=== PATIENT | male | born 1990 | race Caucasian/White ===

== ENCOUNTER 2018-01-20 06:13 | Inpatient (IN) | payer MEDICAID ==
[2018-01-20] MEDS ORDERED: CEFAZOLIN/Water 2 GM/20 ML SYRINGE ONE (06:59)
[2018-01-20] MEDS ORDERED: Lidocaine 0.5%/Epinephrine 1:200,000 50 ml Vial ONE ×2 (07:42→11:33)
[2018-01-20] MEDS ORDERED: Thrombin 5000 UNITS/5 ML VIAL ONE (07:42)
[2018-01-20] MEDS ORDERED: Bacitracin Zinc Ointment 30 gm TUBE ONE (07:45)
[2018-01-20 08:35] LABS: Hemoglobin 16.9 g/dL (14.0-18.0); Mean Corpuscular HGB CONC 35.5 g/dL (32.0-36.0); Mean Corpuscular Hemoglobin 30.4 pg (27.0-31.0); Mean Corpuscular Volume 85.6 fL (78.0-98.0); Mean Platelet Volume 6.3 fL (7.4-10.4); Platelet Count 232 thou/uL (130-400); RBC Distribution Width 11.9 % (11.5-14.5); Red Blood Cell (RBC) Count 5.58 mill/uL (4.70-6.10); White Blood Cell (WBC) Count 10.7 thou/uL (4.8-10.8)
[2018-01-20] MEDS ORDERED: Midazolam HCl 5 mg/5 ml Vial ONE (08:39)
[2018-01-20] MEDS ORDERED: Midazolam HCl 2 mg/2 ml Vial ONE (08:39)
[2018-01-20] MEDS ORDERED: Fentanyl 250 MCG/5 ML VIAL ONE (08:39)
[2018-01-20] MEDS ORDERED: Rocuronium Bromide 50 MG/5 ML VIAL ONE (08:40)
[2018-01-20 08:57] LABS: Anion Gap 12 mmol/L (10-20); BUN (Urea Nitrogen) 17 mg/dL (8.9-20.6); Calc. Creatinine Clearance 116 mL/min (70-130); Calcium 10.1 mg/dL (7.8-10.44); Carbon Dioxide 33 mmol/L (22-29); Chloride 99 mmol/L (98-107); Estimated GFR-MDRD Greater than 90; Glucose 85 mg/dL (70-105); Potassium 3.8 mmol/L (3.5-5.1); Sodium 140 mmol/L (136-145)
[2018-01-20] MEDS ORDERED: Lidocaine 2% 10 ML INJ ONE (09:09)
[2018-01-20] MEDS ORDERED: Dexmedetomidine 200 MCG/2 ML VIAL ONE (09:23)
[2018-01-20] MEDS ORDERED: SUGAMMADEX SODIUM 500 MG/5 ML VIAL ONE (11:52)
[2018-01-20] MEDS ORDERED: diphenhydrAMINE 50 MG/ML VIAL IVP PRN (11:58)
[2018-01-20] MEDS ORDERED: Mag-Al 1200 mg/1200 mg/30 ML UDCUP PO PRN (11:58)
[2018-01-20] MEDS ORDERED: Labetalol HCl 100 MG/20 ML VIAL SLOW IVP PRN (11:58)
[2018-01-20] MEDS ORDERED: hydrALAZINE 20 MG/ML VIAL SLOW IVP PRN (11:58)
[2018-01-20] MEDS ORDERED: Fentanyl 100 MCG/2 ML VIAL ONE (12:41)
--- NOTE | 2018-01-20 12:55 | OP ---
DATE OF PROCEDURE: 01/20/2018 SURGEON: Herbie Lowry M.D. HUMANITIES AND LANGUAGES PROFESSOR: Avni Null PA-C INDICATION: Obtain diagnosis and prevent neurologic decline. 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 ANESTHESIA: General. PROCEDURE PERFORMED: Suboccipital craniectomy with resection of tumor. TECHNIQUE: The patient was brought into the operating room and placed under general anesthesia. He was placed in a 3-point Pavon genet and carefully flipped from a supine or prone position on the operating room table. A midline linear incision was planned from the inion down to the mid portion o f the cervical spine. After prepping and draping and after infiltrating this area with Marcaine with epinephrine. The incision was created. Midline dissection was performed to expose from the inion d own to the lower portion of the occipital bone down near the posterior arch of the foramen magnum. A fter exposing the occiput, rn [facility] holes were placed in the left and right occipital bone just on each side of the midline raphae. A craniectomy was then performed using rongeurs and Kerrisons. The bone work was extended superiorly up to the inion which due to a very large protuberant inion was pa rtially shaved down as well. A large cruciate incision was placed in the cerebellar hemisphere on th e right side and an incision was extended to midline until the medial aspect of the left cerebellar h emisphere was identified. A small corticotomy was performed within the cerebellar parenchyma. There was immediate egress of a yellow-tinged fluid. This was completely removed and decompressed, some o f which was sent off for pathologic analysis. There was a fairly distinct wall present. This was no t removed in total. It did not contrast enhance. There was a long midline. What appeared to be a n odular appearing lesion consistent with a contrast enhancing portion of the lesion on MRI scan. This was sent off for pathologic review. Hemostasis was maintained. The dural leaflets were then reappr oximated and sewn primarily with suture. The wound was again irrigated. Hemostasis was maintained t hroughout. The posterior cervical incision was then closed in anatomic layers and a pressure dressin g was applied. There were no known procedural complications.
[2018-01-20] MEDS ORDERED: Glycopyrrolate 0.2 MG/ML 5 ML SYRINGE ONE (13:14)
[2018-01-20] MEDS ORDERED: Mannitol 12.5 GM/50 ML ONE (13:14)
[2018-01-20] MEDS ORDERED: Labetalol 100 MG/20 ML MDV ONE (13:14)
[2018-01-20] MEDS ORDERED: Ondansetron HCl/PF 4 MG/2 ML Vial ONE (13:14)
[2018-01-20] MEDS ORDERED: Lidocaine 1% PF 5 ML VIAL ONE (13:14)
[2018-01-20] MEDS: Sodium Chloride 0.9% 1,000 ML IV SCH (14:04)
[2018-01-20] MEDS: CEFAZOLIN/Water 2 GM/20 ML SYRINGE SLOW IVP SCH ×2 (14:04→19:24)
[2018-01-20 14:25] VITALS: BMI 23.6
[2018-01-20] MEDS: Ondansetron HCl/PF 4 MG/2 ML Vial IVP PRN (19:31)
[2018-01-20] MEDS: Famotidine/PF 20 mg/2ml Vial SLOW IVP SCH (21:01)
[2018-01-21] MEDS: Sodium Chloride 0.9% 1,000 ML IV SCH ×2 (00:08→13:15)
[2018-01-21 05:09] LABS: #Lymphocytes 2.7 thou/uL (1.20-3.40); #Monocytes 1.3 thou/uL (0.11-0.59); #Neutrophils 10.4 thou/uL (1.40-6.50); %Basophils 0.2 % (0.0-1.0); %Eosinophils 0.1 % (0.0-10.0); %Lymphocytes 18.3 % (21.0-51.0); %Monocytes 9.1 % (0.0-10.0); %Neutrophils 72.3 % (42.0-75.0); Hemoglobin 14.2 g/dL (14.0-18.0); Mean Corpuscular HGB CONC 35.6 g/dL (32.0-36.0); Mean Corpuscular Hemoglobin 30.4 pg (27.0-31.0); Mean Corpuscular Volume 85.4 fL (78.0-98.0); Mean Platelet Volume 6.5 fL (7.4-10.4); Platelet Count 195 thou/uL (130-400); RBC Distribution Width 11.8 % (11.5-14.5); Red Blood Cell (RBC) Count 4.67 mill/uL (4.70-6.10); White Blood Cell (WBC) Count 14.4 thou/uL (4.8-10.8)
[2018-01-21 05:18] LABS: Anion Gap 10 mmol/L (10-20); BUN (Urea Nitrogen) 10 mg/dL (8.9-20.6); Calc. Creatinine Clearance 136 mL/min (70-130); Calcium 8.9 mg/dL (7.8-10.44); Carbon Dioxide 29 mmol/L (22-29); Chloride 100 mmol/L (98-107); Estimated GFR-MDRD Greater than 90; Glucose 105 mg/dL (70-105); Potassium 3.8 mmol/L (3.5-5.1); Sodium 135 mmol/L (136-145)
[2018-01-21] MEDS: Famotidine/PF 20 mg/2ml Vial SLOW IVP SCH (08:24)
[2018-01-21] MEDS: Ondansetron HCl/PF 4 MG/2 ML Vial IVP PRN ×2 (08:24→12:33)
[2018-01-21] MEDS: Furosemide 20 MG TAB PO SCH (08:24)
[2018-01-21] MEDS: Acetaminophen/Codeine 30-300mg Tablet PO PRN ×2 (12:27→20:22)
--- NOTE | 2018-01-21 13:34 | PRG ---
DATE OF SERVICE: 01/21/2018 Mr. Paulson is day #1 status post suboccipital craniotomy and tumor resection for cerebellar mass. He h as some nausea and dizziness, which again given the site of his surgery is not surprising, though he is tolerating it well. Systolic blood pressures in the 150s, which is reasonable. Pain is reasonabl y controlled at the moment. Incision well approximated. No drainage since or concern. He still has his Nunn and so we will go ahead and discontinue that, and we will plan to transition him to the pr oor later this afternoon as long as he is continuing to do well. Avni Null PA-C., dictating for Dr. Lowry.
[2018-01-21] MEDS: Famotidine 20 MG TAB PO SCH (20:24)
[2018-01-22] MEDS: Ondansetron HCl/PF 4 MG/2 ML Vial IVP PRN ×2 (02:50→09:40)
[2018-01-22] MEDS: Sodium Chloride 0.9% 1,000 ML IV SCH ×2 (04:01→15:56)
[2018-01-22] MEDS: Acetaminophen/Codeine 30-300mg Tablet PO PRN ×2 (05:25→15:56)
[2018-01-22] MEDS: Furosemide 20 MG TAB PO SCH (09:05)
[2018-01-22] MEDS: Famotidine 20 MG TAB PO SCH ×2 (09:05→20:36)
--- NOTE | 2018-01-22 11:17 | PRG ---
DATE OF SERVICE: 01/22/2018 Mr. 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 He is doing quite well. He is on the floor and he has been slow to mobilize secondary to nausea and diz ziness. This is anticipated given the location of his surgery and tumor. The plan will be to treat his pain and nausea and continue to mobilize him with physical therapy. He may very well benefit fro m an inpatient rehabilitation stint for a short period of time.
--- NOTE | 2018-01-22 16:30 | PRG ---
DATE OF SERVICE: 01/22/2018 SUBJECTIVE: Mr. Paulson is now postop day 2 following suboccipital craniotomy and has been managing chen rly well. He has been ambulating, but has significant ataxia when doing so. He also gets dizzy and then has severe bouts of vomiting. This is expected and I discussed this with him based upon the loc ation of his tumor and the surgery that was performed. He is understanding of this. We will work to control his nausea a little bit better. We will continue to work therapy and perhaps a rehab screen to see if he would be candidate for placement.
[2018-01-23] MEDS: Acetaminophen/Codeine 30-300mg Tablet PO PRN ×2 (03:06→13:58)
[2018-01-23] MEDS ORDERED: Ondansetron HCl/PF 4 MG/2 ML Vial IVP PRN (05:59)
[2018-01-23] MEDS: Sodium Chloride 0.9% 1,000 ML IV SCH ×2 (06:00→19:53)
[2018-01-23] MEDS: Famotidine 20 MG TAB PO SCH ×2 (09:25→19:50)
[2018-01-23] MEDS: Furosemide 20 MG TAB PO SCH (09:25)
[2018-01-24] MEDS: Acetaminophen/Codeine 30-300mg Tablet PO PRN ×2 (05:52→13:30)
--- NOTE | 2018-01-24 08:28 | PRG ---
DATE OF SERVICE: 01/24/2018 Mr. Paulson is postop day #4 following suboccipital craniotomy. He is resting in bed this morning which is the first time I have seen him comfortably resting every morning of rounds. He arouses easily an d states minimal pain. I will follow up on rehab consult later this morning as he still has consider able difficulty with gait and nausea.
[2018-01-24 08:42] VITALS: TEMP 98.6
[2018-01-24] MEDS: Furosemide 20 MG TAB PO SCH (09:27)
[2018-01-24] MEDS: Sodium Chloride 0.9% 1,000 ML IV SCH (09:30)
[2018-01-24] MEDS: Famotidine 20 MG TAB PO SCH (09:31)
[2018-01-24 12:34] VITALS: BP 131/82
--- NOTE | 2018-01-31 12:36 | DIS ---
Mr. Paulson is a 27-year-old man admitted to [facility] in the postoperative period by Dr. Jonny Lowry on 01/20/2018 with subsequent discharge on 01/24/2018. ADMISSION DIAGNOSES: Status post suboccipital craniotomy and tumor resection and cerebellar mass. DISCHARGE DIAGNOSES: Status post suboccipital craniotomy and tumor resection and cerebellar mass. HOSPITAL COURSE: Mr. Paulson was admitted after surgery for one night in the ICU and then 2 nights in t surgical floor and tolerated this very well. He had initially some trouble with nausea, vomiting, and constipation, but this slowly improved. He is able to ambulate and tolerate this without assist ance, and ultimately, he was discharged home in good condition with outpatient followup plan. Avni Null PA-C., dictating for Dr. Lowry.
--- NOTE | 2018-02-22 09:01 | PQF ---
MAUREEN ARIAS JANES NULL [id number] SURG A- [id number] CLINICAL DOCUMENTATION CLARIFICATION FORM: POST DISCHARGE DATE: 02/22/2018 ATTN: Janes Null Please exercise your independent, professional judgment in responding to the clarification form. Clinical indicators are provided on the bottom of this form for your review Please specify cerebellar mass as: Please check appropriate box(s): [ x ] Neoplasm: Type: [ ] Malignant [ x ] Benign [ ] Undetermined Behavior [ ] Other (please specify) [ ] Other diagnosis (please specify) [ ] Unable to determine In addition, please specify: Present on Admission (POA): [x ] Yes [ ] No [ ] Unable to determine For continuity of documentation, please document condition throughout progress notes and discharge summary. Thank You. CLINICAL INDICATORS - SIGNS / SYMPTOMS / LABS Biopsy results (per pathology report): Diagnosis: Brain, cystic cerebellar lesion, biopsy: Fragments of cerebellar parenchyma with focal gliosis and dense Michi fiber deposition. RISK FACTORS N/A. Patient is 27 with no risk factors. TREATMENT: Per operative report: Suboccipital craniectomy with resection of tumor . (This form is maintained as a part of the permanent medical record) 2014 [employer] All Rights Reserved [email or web address] [phone] [email or web address]
== END 2018-01-24 17:14 | disposition home or self-care (01) | DRG 25 ==
LOC: SURG A 06:13 → CCU 13:48 → SURG A 01-21 13:17
PROVIDERS: ADMIT Neurological Surgery; ATTEND Neurological Surgery
PROC: 00BC0ZZ Excision of Cerebellum, Open Approach (ICD-10-PCS; principal; 2018-01-20)
DX: D33.1 Benign neoplasm of brain, infratentorial (principal); G93.5 Compression of brain; R11.2 Nausea with vomiting, unspecified; K59.00 Constipation, unspecified
CPT/HCPCS: 36416; 80048; 85025; 85027; 86850; 86900; 86901; 88112; 88307; G8978-GP-CK; G8979-GP-CI; G8987-GO-CK; G8988-GO-CI; J1642; J2001; J2150; J2250; J2270; J2405; J3010; S0028

== ENCOUNTER 2018-02-02 10:11 | Outpatient (CLI) | payer MEDICAID ==
--- NOTE | 2018-02-02 11:36 | RAD ---
AP SUPINE ABDOMINAL RADIOGRAPH: Date: 02-02-18 History: Abdominal pain. Patient has not had bowel movement since back surgery on 01-20-18. FINDINGS: There is dense distention of loops of bowel, but bowel gas pattern is overall nonspecific. No suspici ous calcifications are seen. There is a small to moderate amount of retained fecal material in the re gion of the rectum. Osseous structures are intact. IMPRESSION: Nonspecific bowel gas pattern. POS: CYNDEE
== END 2018-02-02 10:12 | disposition home or self-care (01) ==
LOC: TBSIIMAG 10:11
PROVIDERS: ATTEND Physician Assistant
DX: R10.9 Unspecified abdominal pain (principal)
CPT/HCPCS: 74018